=== PATIENT | male | born 1970 | race African-American/Black ===

== ENCOUNTER 2021-04-19 13:36 | Emergency (ER) | payer SELFPAY ==
[2016-07-24 19:45] VITALS: BP 172/91
[~2021-04-19 13:36] MED LIST: CYCL10TA2 PO; NAPR500T8 PO
== END 2021-04-19 14:17 | disposition left against medical advice (07) ==
LOC: ER 13:36
DX: S49.90XA Unspecified injury of shoulder and upper arm, unspecified arm, initial encounter (principal); Z53.21 Procedure and treatment not carried out due to patient leaving prior to being seen by health care provider; X58.XXXA Exposure to other specified factors, initial encounter; Y92.89 Other specified places as the place of occurrence of the external cause; Y93.89 Activity, other specified; Y99.8 Other external cause status